=== PATIENT | female | born 1995 | race Caucasian/White ===

== ENCOUNTER → 2016-05-13 | Outpatient (CLI) | payer BC ==
[~2016-05-13] MED LIST: bcp PO
--- NOTE | 2016-05-13 15:13 | Diagnostic Imaging Report ---
INDICATION: Left-sided pelvic pain. COMPARISON: 12/18/2011. DISCUSSION: Transabdominal and transvaginal sonographic evaluation of the pelvis was performed. The uterus is normal in echotexture and size measuring 5.7 x 4.7 x 3.0 cm. Normal endometrial thickness measuring 0.2 cm. The left ovary was mostly obscured due to overlying bowel. The right ovary appears normal in echotexture and size with normal color Doppler blood flow. The right ovary measures 2.4 x 2.0 x 2.3 cm. No abnormal adnexal mass or fluid. IMPRESSION: 1. Nonvisualization of the left ovary. No acute abnormality otherwise identified. Dictated by: Dictated on workstation # [id number]
== END ==
LOC: RAD 14:10
PROVIDERS: ATTEND Nurse Practitioner
DX: R10.2 Pelvic and perineal pain (principal)
CPT/HCPCS: 76830; 76856

== ENCOUNTER → 2018-10-05 | Outpatient (CLI) | payer BC ==
--- NOTE | 2018-10-05 13:54 | Diagnostic Imaging Report ---
INDICATION: Pain. 3 views of the left foot were obtained. FINDINGS: The alignment is normal. There is no fracture or dislocation. Soft tissues are unremarkable. IMPRESSION: No acute fracture or dislocation. Dictated by: Dictated on workstation # [id number]
== END ==
LOC: RAD 13:22
PROVIDERS: ATTEND Nurse Practitioner Family
DX: M79.672 Pain in left foot (principal)
CPT/HCPCS: 73630

== ENCOUNTER 2019-01-25 11:26 | Emergency (ER) | payer BC ==
[~2019-01-25] VITALS: Ht 170 cm; Wt 52.7 kg
[2019-01-25 11:57] LABS: BILIRUBIN,URINE NEGATIVE (NEGATIVE); CLARITY,URINE CLEAR; COLOR,URINE YELLOW; GLUCOSE, URINE (UA) NEGATIVE (NEGATIVE); KETONES,URINE 3+ (NEGATIVE); LEUKOCYTE ESTERASE ,URINE 1+ (NEGATIVE); NITRITE,URINE NEGATIVE (NEGATIVE); PH,URINE 6 (5-9); PROTEIN,URINE 2+ (NEGATIVE)
[2019-01-25 12:05] LABS: BACTERIA,URINE FEW /HPF; RBC,URINE RARE /HPF; WBC,URINE RARE /HPF
[2019-01-25] MEDS ORDERED: NS IV 1000 ML 1,000 ML IV SCH (12:07)
--- NOTE | 2019-01-25 12:09 | ED GI ---
General Stated Complaint: ABD PAIN;VOMITING Source of Information: Patient NPO Since: Midnight last night (KIM MACKENZIE) History of Present Illness Date Seen by Provider: Jan 25, 2019 Time Seen by Provider: 12:00 Initial Comments Patient presents to the ED today with a three hour history of N/V/D. Patient states she has had five bouts of diarrhea and has vomited seven times. She has already been seen by [facility] and was referred to the ED. She hasn't eaten since midnight and hasn't been able to tolerate liquids. The patient is afebrile and denies any hematochezia or history of GI problems. LMP was two weeks ago. Timing/Duration: 4-6 Hours Severity/Quality: Moderate, Cramping Location: RLQ, Epigastric Radiation: No Radiation Activities at Onset: Sleeping Modifying Factors: Improves With Lying down, Improves With Vomiting Associated Symptoms: Denies Symptoms (KIM MACKENZIE) Initial Comments Patient seen and evaluated with the ELISABETH Student, agreed with history and assessment. Documentation edited, as needed. (ALONDRA VALLES) Allergies and Home Medications Allergies Coded Allergies: Sulfa (Sulfonamide Antibiotics) (Verified Allergy, Unknown, 01/25/19) Penicillins (Unverified Adverse Reaction, Mild, 12/05/11) Home Medications Ondansetron 4 Mg Tab.rapdis, 4-8 MG PO Q6H PRN for NAUSEA/VOMITING Prescribed by: ALONDRA VALLES on 01/25/19 1252 [bcp] , 1 TAB PO DAILY, (Reported) Patient Home Medication List Home Medication List Reviewed: Yes (ALONDRA VALLES) Review of Systems Review of Systems Constitutional: no symptoms reported EENTM: No Symptoms Reported Respiratory: No Symptoms Reported Cardiovascular: No Symptoms Reported Gastrointestinal: See HPI Genitourinary: No Symptoms Reported Musculoskeletal: no symptoms reported Skin: no symptoms reported Psychiatric/Neurological: No Symptoms Reported Endocrine: No Symptoms Reported Hematologic/Lymphatic: No Symptoms Reported (KIM MACKENZIE) Physical Exam Vital Signs Vital Signs - First Documented 01/25/19 11:45 Temp 36.3 Pulse 86 Resp 16 B/P (MAP) 125/101 (109) Pulse Ox 100 (ALONDRA VALLES) Vital Signs Capillary Refill : (MACKENZIE,KIM PA STUDENT) Height/Weight/BMI Height: '" Weight: lbs. oz. kg; BMI Method:Stated General Appearance: mild distress HEENT: PERRL/EOMI, normal ENT inspection, TMs normal, pharynx normal Neck: non-tender, full range of motion, supple, normal inspection Respiratory: chest non-tender, lungs clear, normal breath sounds, no respiratory distress, no accessory muscle use Cardiovascular: normal peripheral pulses, regular rate, rhythm, no edema, no gallop, no JVD, no murmur Peripheral Pulses: 2+ Dorsalis Pedis (R), 2+ Left Dors-Pedis (L), 2+ Radial Pulses (R), 2+ Radial Pulses (L) Gastrointestinal: normal bowel sounds, non tender, soft, no organomegaly, no pulsatile mass Extremities: normal range of motion, non-tender, normal inspection, no pedal edema, no calf tenderness Neurologic/Psychiatric: alert, normal mood/affect, oriented x 3 Skin: normal color, warm/dry Lymphatic: no adenopathy (KIM MACKENZIE PA STUDENT) Progress/Results/Core Measures Results/Orders Lab Results Laboratory Tests Test 01/25/19 11:50 01/25/19 12:20 Range/Units Urine Color YELLOW Urine Clarity CLEAR Urine pH 6 5-9 Urine Specific [place] 1.020 1.016-1.022 Urine Protein 2+ H NEGATIVE Urine Glucose (UA) NEGATIVE NEGATIVE Urine Ketones 3+ H NEGATIVE Urine Nitrite NEGATIVE NEGATIVE Urine Bilirubin NEGATIVE NEGATIVE Urine Urobilinogen 1 NORMAL MG/DL Urine Leukocyte Esterase 1+ H NEGATIVE Urine RBC (Auto) 1+ H NEGATIVE Urine RBC RARE /HPF Urine WBC RARE /HPF Urine Squamous Epithelial Cells NONE /HPF Urine Crystals NONE /LPF Urine Bacteria FEW H /HPF Urine Casts NONE /LPF Urine Mucus NEGATIVE /LPF Urine Culture Indicated NO White Blood Count 16.1 H 4.3-11.0 10^3/uL Red Blood Count 4.96 4.35-5.85 10^6/uL Hemoglobin 14.1 11.5-16.0 G/DL Hematocrit 41 35-52 % Mean Corpuscular Volume 83 80-99 FL Mean Corpuscular Hemoglobin 28 25-34 PG Mean Corpuscular Hemoglobin Concent 35 32-36 G/DL Red Cell Distribution Width 12.9 10.0-14.5 % Platelet Count 311 130-400 10^3/uL Mean Platelet Volume 9.7 7.4-10.4 FL Neutrophils (%) (Auto) 90 H 42-75 % Lymphocytes (%) (Auto) 6 L 12-44 % Monocytes (%) (Auto) 3 0-12 % Eosinophils (%) (Auto) 0 0-10 % Basophils (%) (Auto) 0 0-10 % Neutrophils # (Auto) 14.5 H 1.8-7.8 X 10^3 Lymphocytes # (Auto) 0.9 L 1.0-4.0 X 10^3 Monocytes # (Auto) 0.6 0.0-1.0 X 10^3 Eosinophils # (Auto) 0.1 0.0-0.3 10^3/uL Basophils # (Auto) 0.0 0.0-0.1 10^3/uL Neutrophils % (Manual) 92 % Lymphocytes % (Manual) 3 % Monocytes % (Manual) 5 % Eosinophils % (Manual) 0 % Basophils % (Manual) 0 % Band Neutrophils 0 % Blood Morphology Comment NORMAL Sodium Level 136 135-145 MMOL/L Potassium Level 3.3 L 3.6-5.0 MMOL/L Chloride Level 104 98-107 MMOL/L Carbon Dioxide Level 24 21-32 MMOL/L Anion Gap 8 5-14 MMOL/L Blood Urea Nitrogen 11 7-18 MG/DL Creatinine 0.80 0.60-1.30 MG/DL Estimat Glomerular Filtration Rate > 60 BUN/Creatinine Ratio 14 Glucose Level 117 H 70-105 MG/DL Calcium Level 8.8 8.5-10.1 MG/DL Corrected Calcium 8.5-10.1 MG/DL Total Bilirubin 0.7 0.1-1.0 MG/DL Aspartate Amino Transf (AST/SGOT) 16 5-34 U/L Alanine Aminotransferase (ALT/SGPT) 15 0-55 U/L Alkaline Phosphatase 62 40-136 U/L Total Protein 7.6 6.4-8.2 GM/DL Albumin 4.7 H 3.2-4.5 GM/DL (ALONDRA VALLES) My Orders Orders - ALONDRA VALLES Urine Bedside (01/25/19 11:28) Ua Culture If Indicated (01/25/19 11:28) Ondansetron Injection (Zofran Injectio (01/25/19 12:15) Ed Iv/Invasive Line Start (01/25/19 12:07) Ns Iv 1000 Ml (Sodium Chloride 0.9%) (01/25/19 12:07) Cbc With Automated Diff (01/25/19 12:08) Comprehensive Metabolic Panel (01/25/19 12:08) Manual Differential (01/25/19 12:20) (ALONDRA VALLES) Medications Given in ED Current Medications Medications Dose Ordered Sig/Sirisha Route Start Time Stop Time Status Last Admin Dose Admin Ondansetron HCl 4 mg ONCE ONCE IVP 01/25/19 12:15 01/25/19 12:16 DC 01/25/19 12:17 4 MG (ALONDRA VALLES) Vital Signs/I&O 01/25/19 01/25/19 11:45 13:42 Temp 36.3 Pulse 86 87 Resp 16 20 B/P (MAP) 125/101 (109) 134/94 Pulse Ox 100 99 (ALONDRA VALLES) Progress Progress Note : Time: 12:00 Progress Note Patient seen and evaluated, will give normal saline 1 L per IV and Zofran 8 mg 1240 patient reports symptoms are improving, will give ice chips and see how she tolerates. 1315 patient had no further nausea, vomiting, or diarrhea. Tolerating ice chips. IV infusing, will plan discharge after completion. 1330 patient reports be feeling much better. Discharge instructions and return precautions reviewed with her. (ALONDRA VALLES) Departure Impression Primary Impression: Viral gastroenteritis Disposition: 01 HOME, SELF-CARE Condition: Improved Departure-Patient Inst. Decision time for Depature: 13:30 (ALONDRA VALLES) Referrals: MOHAMUD HANSEN MD (PCP/Family) Primary Care Physician Patient Instructions: Viral Gastroenteritis, Adult (DC) Add. Discharge Instructions: Push clear liquid diet for the next 4-6 hours, then bland diet as tolerated. You may take Zofran 1-2 tablets every 6 hours as needed for nausea and vomiting. May take an gyae-nqk-prfqdof antidiarrheal as needed. Follow-up with your primary care provider in one to 2 days if symptoms are not improving or worsen. You may take Tylenol 650 mg every 6 hours as needed for fever or pain. Return to the emergency department for new, urgent health care needs. Scripts Ondansetron (Ondansetron Odt) 4 Mg Tab.rapdis 4-8 MG PO Q6H PRN for NAUSEA/VOMITING, #8 TAB 0 Refills Prov: ALONDRA VALLES 01/25/19 KIM MACKENZIE STUDENT Jan 25, 2019 12:09 ALONDRA VALLES Jan 25, 2019 12:53
[2019-01-25] MEDS ORDERED: ONDANSETRON 4 MG/2 ML (SDV) Z0FRAN IVP ONE (12:15)
[2019-01-25 12:28] LABS: BASOPHILS % (AUTO) 0 % (0-10); EOSINOPHILS # (AUTO) 0.1 10^3/uL (0.0-0.3); EOSINOPHILS % (AUTO) 0 % (0-10); HEMATOCRIT 41 % (35-52); HEMOGLOBIN 14.1 G/DL (11.5-16.0); LYMPHOCYTES # (AUTO) 0.9 X 10^3 (1.0-4.0); LYMPHOCYTES % (AUTO) 6 % (12-44); MEAN CORPUSCULAR HEMOGLOBIN 28 PG (25-34); MEAN CORPUSCULAR HGB CONC 35 G/DL (32-36); MEAN CORPUSCULAR VOLUME 83 FL (80-99); MEAN PLATELET VOLUME 9.7 FL (7.4-10.4); MONOCYTES # (AUTO) 0.6 X 10^3 (0.0-1.0); MONOCYTES % (AUTO) 3 % (0-12); NEUTROPHILS # (AUTO) 14.5 X 10^3 (1.8-7.8); NEUTROPHILS % (AUTO) 90 % (42-75); PLATELET COUNT 311 10^3/uL (130-400); RED CELL DISTRIBUTION WIDTH 12.9 % (10.0-14.5); WHITE BLOOD COUNT 16.1 10^3/uL (4.3-11.0)
[2019-01-25 12:49] LABS: CARBON DIOXIDE 24 MMOL/L (21-32); CHLORIDE 104 MMOL/L (98-107); POTASSIUM 3.3 MMOL/L (3.6-5.0); SODIUM 136 MMOL/L (135-145)
[2019-01-25 12:50] LABS: ALANINE AMINOTRANSFERASE 15 U/L (0-55); ALBUMIN 4.7 GM/DL (3.2-4.5); ALKALINE PHOSPHATASE 62 U/L (40-136); BILIRUBIN,TOTAL 0.7 MG/DL (0.1-1.0); BUN/CREATININE RATIO 14; CALCIUM 8.8 MG/DL (8.5-10.1); GFR ESTIMATED > 60; GLUCOSE 117 MG/DL (70-105); TOTAL PROTEIN 7.6 GM/DL (6.4-8.2)
[2019-01-25] MEDS ORDERED: ONDA4TAB11 PO (12:52)
[2019-01-25 12:56] LABS: BAND NEUTROPHILS 0 %; BASOPHILS % (MANUAL) 0 %; EOSINOPHILS % (MANUAL) 0 %; LYMPHOCYTES % (MANUAL) 3 %; MONOCYTES % (MANUAL) 5 %; NEUTROPHILS % (MANUAL) 92 %; RBC MORPH NORMAL
[2019-01-25 13:42] VITALS: BP 134/94
== END 2019-01-25 13:42 | disposition home or self-care (01) ==
LOC: EDUNIT# 11:26 → ER 11:27
DX: A08.4 Viral intestinal infection, unspecified (principal); Z88.2 Allergy status to sulfonamides; Z88.0 Allergy status to penicillin
CPT/HCPCS: 36415; 80053; 81000; 85007; 85027

== ENCOUNTER 2022-01-08 09:38 | Inpatient (IN) | payer BC, MEDICAID ==
[~2022-01-08] VITALS: Ht 170.2 cm; Wt 71.6 kg
[2022-01-08] VITALS (42 sets, daily range): BP systolic 120–170; BP diastolic 60–94
[~2022-01-08 09:38] MED LIST changes: +ONDA4TAB11 PO
[2022-01-08 10:13] LABS: BILIRUBIN,URINE NEGATIVE (NEGATIVE); CLARITY,URINE CLEAR; COLOR,URINE YELLOW; GLUCOSE, URINE (UA) NEGATIVE (NEGATIVE); KETONES,URINE NEGATIVE (NEGATIVE); LEUKOCYTE ESTERASE ,URINE NEGATIVE (NEGATIVE); NITRITE,URINE NEGATIVE (NEGATIVE); PH,URINE 6.5 (5-9); PROTEIN,URINE NEGATIVE (NEGATIVE)
[2022-01-08 10:23] LABS: BACTERIA,URINE NEGATIVE /HPF
[2022-01-08 10:24] LABS: SQUAMOUS EPITHELIAL CELL,UR RARE /HPF
[2022-01-08] MEDS ORDERED: MINERAL OIL 30 ML UDC TOP PRN (12:15)
[2022-01-08] MEDS ORDERED: LIDOCAINE/EPI 2% 1:200,00 (XYLOCAINE) 10 ML VIAL INJ PRN (12:15)
[2022-01-08 12:36] LABS: BASOPHILS % (AUTO) 0 % (0-10); EOSINOPHILS % (AUTO) 0 % (0-10); HEMATOCRIT 39 % (35-52); HEMOGLOBIN 13.2 g/dL (11.5-16.0); LYMPHOCYTES # (AUTO) 1.5 10^3/uL (1.0-4.0); LYMPHOCYTES % (AUTO) 12 % (12-44); MEAN CORPUSCULAR HEMOGLOBIN 28 pg (25-34); MEAN CORPUSCULAR HGB CONC 34 g/dL (32-36); MEAN CORPUSCULAR VOLUME 83 fL (80-99); MEAN PLATELET VOLUME 10.7 fL (9.0-12.2); MONOCYTES # (AUTO) 0.7 10^3/uL (0.0-1.0); MONOCYTES % (AUTO) 6 % (0-12); NEUTROPHILS # (AUTO) 10.3 10^3/uL (1.8-7.8); NEUTROPHILS % (AUTO) 81 % (42-75); PLATELET COUNT 284 10^3/uL (130-400); WHITE BLOOD COUNT 12.7 10^3/uL (4.3-11.0)
[2022-01-08] MEDS: D5 LR IV SOLUTION 1,000 ML IV SCH ×2 (13:17→19:29)
[2022-01-08] MEDS ORDERED: MV-M1TAB66 PO (13:20)
[2022-01-08] MEDS ORDERED: CATHETER FLUSH 10 ML SYR IV SCH (14:00)
[2022-01-08] MEDS ORDERED: LACTATED RINGERS 1,000 ML IV ONE (16:48)
[2022-01-08] MEDS ORDERED: fentaNYL 2 mcg/ml BUPIVA 0.125 100 ML ONE (16:48)
[2022-01-08] MEDS ORDERED: diphenhydrAMINE 50 MG/ML INJ (BENADRYL) IV PRN (18:00)
[2022-01-08] MEDS ORDERED: ONDANSETRON 4 MG/2 ML (SDV) Z0FRAN IV PRN (18:00)
[2022-01-08] MEDS ORDERED: NALOXONE 0.4 MG/ML 1 ML (NARCAN) VIAL IV PRN ×2 (18:00)
[2022-01-08] MEDS ORDERED: LACTATED RINGERS 1,000 ML IV SCH (18:00)
[2022-01-08] MEDS ORDERED: METOCLOPRAMIDE INJ 10 MG/2 ML (REGLAN) IV PRN (18:00)
[2022-01-08] MEDS ORDERED: fentaNYL 2 mcg/ml BUPIVA 0.125 100 ML EPI SCH (18:00)
--- NOTE | 2022-01-08 18:38 | History & Physical-OB ---
OB - Chief Complaint & HPI Date/Time Date of Admission: Date of Admission: Jan 08, 2022 at 12:08 Date seen by a Provider: Jan 08, 2022 Time Seen by a Provider: 18:25 Chief Complaint/History OB-Reason for Admission/Chief: Onset of Labor Hx : 1 Hx Para: 0 Expected Date of Delivery: Jan 13, 2022 Gestational Age in Weeks: 39 Gestational Age in Days: 2 History of Labs O+, Ab neg, Rub Imm HIV/RPR/HepB/C NR Normal 1 hr GTT GBS neg Allergies and Home Medications Allergies Coded Allergies: Sulfa (Sulfonamide Antibiotics) (Verified Allergy, Unknown, 01/25/19) Penicillins (Unverified Adverse Reaction, Mild, 12/05/11) Patient Home Medication List Home Medication List Reviewed: Yes Mv-Mn/Iron/FA/Herbal/Digestive ( One Tablet) 27 Mg Iron-360 Mcg-125 Mg- 32 Mg Tablet, 1 EACH PO DAILY, (Reported) Entered as Reported by: NELIA FLYNN on 01/08/22 1320 Last Action: New Order Discontinued Medications Ondansetron (Ondansetron Odt) 4 Mg Tab.rapdis, 4-8 MG PO Q6H PRN for NAUSEA/VOMITING Discontinued Reason: No Longer Taking Prescribed by: ALONDRA VALLES on 01/25/19 1252 Last Action: Discontinued [bcp] , 1 TAB PO DAILY, (Reported) Discontinued Reason: No Longer Taking Entered as Reported by: ALONDRA ELIZONDO on 12/05/112008 Last Action: Discontinued OB - History Hx of Present Care: Yes Ultrasounds: Normal mid trimester US Obstetrical Complications: None Medical Complications: None Obstetrical History Hx : 1 Patient Past Medical History None Social History/Family History Alcohol Use: Denies Use Smoking Cessation: Never smoker Immunizations Influenza Vaccine Up-to-Date: No; Not Current Tetanus Booster (TDap): Less than 5yrs (11/03/21) Rubella: immune RPR/VDRL: Negative GBS Status: Negative HBsAG: Negative OB - Admission Exam Physical Exam HEENT: NCAT Lungs: Clear Abdomen: Gravid Cervical Dilatation: 6cm Effacement: 100% Station: -1 Membranes: Intact Heart Rate: 140's Decelerations: No Decelerations Short Term Variability: Present Contractions on Admission: < 5 Minutes Apart Intensity: Firm Labs Laboratory Tests Test 01/08/22 10:00 01/08/22 12:25 Range/Units Urine Color YELLOW Urine Clarity CLEAR Urine pH 6.5 5-9 Urine Specific [place] 1.010 L 1.016-1.022 Urine Protein NEGATIVE NEGATIVE Urine Glucose (UA) NEGATIVE NEGATIVE Urine Ketones NEGATIVE NEGATIVE Urine Nitrite NEGATIVE NEGATIVE Urine Bilirubin NEGATIVE NEGATIVE Urine Urobilinogen 0.2 < = 1.0 MG/DL Urine Leukocyte Esterase NEGATIVE NEGATIVE Urine RBC (Auto) NEGATIVE NEGATIVE Urine RBC NONE /HPF Urine WBC NONE /HPF Urine Squamous Epithelial Cells RARE /HPF Urine Crystals NONE /LPF Urine Bacteria NEGATIVE /HPF Urine Casts NONE /LPF Urine Mucus NEGATIVE /LPF Urine Culture Indicated NO White Blood Count 12.7 H 4.3-11.0 10^3/uL Red Blood Count 4.70 3.80-5.11 10^6/uL Hemoglobin 13.2 11.5-16.0 g/dL Hematocrit 39 35-52 % Mean Corpuscular Volume 83 80-99 fL Mean Corpuscular Hemoglobin 28 25-34 pg Mean Corpuscular Hemoglobin Concent 34 32-36 g/dL Red Cell Distribution Width 13.6 10.0-14.5 % Platelet Count 284 130-400 10^3/uL Mean Platelet Volume 10.7 9.0-12.2 fL Immature Granulocyte % (Auto) 1 % Neutrophils (%) (Auto) 81 H 42-75 % Lymphocytes (%) (Auto) 12 12-44 % Monocytes (%) (Auto) 6 0-12 % Eosinophils (%) (Auto) 0 0-10 % Basophils (%) (Auto) 0 0-10 % Neutrophils # (Auto) 10.3 H 1.8-7.8 10^3/uL Lymphocytes # (Auto) 1.5 1.0-4.0 10^3/uL Monocytes # (Auto) 0.7 0.0-1.0 10^3/uL Eosinophils # (Auto) 0.0 0.0-0.3 10^3/uL Basophils # (Auto) 0.0 0.0-0.1 10^3/uL Immature Granulocyte # (Auto) 0.1 0.0-0.1 10^3/uL OB - Assessment/Plan/Diagnosis Assessment Assessment: active labor Admission Dx Third Trimester 39 week gestation Admission Status: Inpatient Order (span 2 midnights) Reason for Inpatient Admission: Labor and post care Plan Other Plan 26 yo G1 @ 39.2 wga here for bleeding and possible rupture of membranes Plan - Expectant management - GBS neg - AROM 1829, Thin Mec ESTEBAN LAU MD Jan 08, 2022 18:38
[2022-01-08] MEDS ORDERED: OXYTOCIN PRE-MIX DRIP 500 ML IV ONE ×2 (22:08→23:32)
[2022-01-08] MEDS: OXYTOCIN PRE-MIX DRIP 500 ML IV SCH ×2 (22:55→23:32)
--- NOTE | 2022-01-08 23:42 | OB Labor & Delivery Record ---
Vag Delivery Note Vag Delivery Note Date of Delivery: 01/08/22 Preoperative Diagnosis: Mya Frazier is a (26 /Para 1 / 0, Gestational Age (wks)39.3 here in active labor with SROM at home Postoperative Diagnosis: Same Surgeon: ESTEBAN LAU MD Design Agent: None Anesthesia: Epidural Delivery Type: @ 2220 Findings: Viable female , apgars 9/9, weight 7#6, 3355 grams Lacerations: 2nd degree perineal and right labial laceration Intact placenta with 3 vessel cord. No nuchal cord, body cord or shoulder dystocia Estimated Blood Loss: 125 ml Complications: None Condition: Stable Description of Procedure: The patient is a 26 year old female who presented in active labor. She was admitted and informed consent was obtained. Her labor course was unremarkable. She progressed to complete dilatation and began to push. She was then set up for delivery. The 's head was delivered atraumatically in the HAMIDA position. The shoulders and remainder of the 's body were then delivered without difficulty. Upon delivery, the head was held below the level of the perineum and the mouth and nares were bulb suctioned. The cord was doubly clamped and cut after 3 min delay and the was attended to by the pediatric staff on maternal abdomen. An intact placenta with 3-vessel cord delivered via Ty and there was found to be minimal bleeding.~ Vigorous fundal massage was performed and the fundus was found to be firm. IV oxytocin was given. Examination of the vagina and perineum revealed a 2nd degree perineal laceration and right labial laceration repaired in the usual fashion with 3-0 vicryl suture. Following the repair, sponge, instrument and needle counts were correct. Mom and baby were both in stable condition in the labor suite. Vitals - Labs Vital Signs - I&O Vital Signs Date Time Temp Pulse Resp B/P (MAP) Pulse Ox O2 Delivery O2 Flow Rate FiO2 01/08/22 21:15 85 16 127/91 (103) 100 Room Air 01/08/22 21:10 70 127/91 (103) 99 Room Air 01/08/22 21:05 84 137/87 (104) 99 Room Air 01/08/22 21:00 74 16 136/88 (104) 99 Room Air 01/08/22 20:55 83 130/91 (104) 99 Room Air 01/08/22 20:50 76 131/87 (102) 99 Room Air 01/08/22 20:45 80 16 150/85 (106) 99 Room Air 01/08/22 20:30 37.2 81 16 133/87 (102) 99 Room Air 01/08/22 20:15 101 16 153/88 (109) 100 Room Air 01/08/22 20:00 80 16 148/86 (106) 100 Room Air 01/08/22 19:45 77 16 100 Room Air 01/08/22 19:00 72 18 129/74 (92) 100 Room Air 01/08/22 18:50 77 18 137/74 (95) 100 Room Air 01/08/22 18:40 82 18 130/75 (93) 100 Room Air 01/08/22 18:30 110 18 132/88 (103) 99 Room Air 01/08/22 18:20 68 18 120/69 (86) 99 Room Air 01/08/22 18:14 93 18 127/60 (82) 98 Room Air 01/08/22 18:04 78 18 125/61 (82) 98 Room Air 01/08/22 18:00 92 18 140/85 (103) 99 Room Air 01/08/22 17:50 95 18 130/89 (103) 99 Room Air 01/08/22 17:46 90 18 143/93 (110) Room Air 01/08/22 17:43 37.0 81 18 139/90 (106) 100 Room Air 01/08/22 17:40 88 18 142/77 (98) 100 Room Air 01/08/22 17:37 85 18 158/92 (114) Room Air 01/08/22 17:34 88 18 152/88 (109) 100 Room Air 01/08/22 17:31 84 18 151/83 (105) Room Air 01/08/22 17:28 83 18 152/83 (106) 100 Room Air 01/08/22 16:16 37.0 90 18 134/83 (100) Room Air 01/08/22 15:37 36.8 80 18 138/90 (106) 99 Room Air 01/08/22 13:50 73 18 143/88 (106) Room Air 01/08/22 13:15 36.6 74 18 146/92 (110) Room Air 01/08/22 11:20 77 152/92 (112) Labs Laboratory Tests 01/08/22 10:00: Urine Color YELLOW, Urine Clarity CLEAR, Urine pH 6.5, Urine Specific [place] 1.010L, Urine Protein NEGATIVE, Urine Glucose (UA) NEGATIVE, Urine Ketones NEGATIVE, Urine Nitrite NEGATIVE, Urine Bilirubin NEGATIVE, Urine Urobilinogen 0.2, Urine Leukocyte Esterase NEGATIVE, Urine RBC (Auto) NEGATIVE, Urine RBC NONE, Urine WBC NONE, Urine Squamous Epithelial Cells RARE, Urine Crystals NONE, Urine Bacteria NEGATIVE, Urine Casts NONE, Urine Mucus NEGATIVE, Urine Culture Indicated NO 01/08/22 12:25: White Blood Count 12.7H, Red Blood Count 4.70, Hemoglobin 13.2, Hematocrit 39, Mean Corpuscular Volume 83, Mean Corpuscular Hemoglobin 28, Mean Corpuscular Hemoglobin Concent 34, Red Cell Distribution Width 13.6, Platelet Count 284, Mean Platelet Volume 10.7, Immature Granulocyte % (Auto) 1, Neutrophils (%) (Auto) 81H, Lymphocytes (%) (Auto) 12, Monocytes (%) (Auto) 6, Eosinophils (%) (Auto) 0, Basophils (%) (Auto) 0, Neutrophils # (Auto) 10.3H, Lymphocytes # (Auto) 1.5, Monocytes # (Auto) 0.7, Eosinophils # (Auto) 0.0, Basophils # (Auto) 0.0, Immature Granulocyte # (Auto) 0.1 ESTEBAN LAU MD Jan 08, 2022 23:42
[2022-01-08] MEDS ORDERED: WITCH HAZEL(TUCKS) 40 EA JAR TOP PRN (23:45)
[2022-01-08] MEDS ORDERED: BENZOCAINE/MENTHOL (DERMOPLAST) 56 ML CAN TP PRN (23:45)
[2022-01-09] VITALS (14 sets, daily range): BP systolic 122–147; BP diastolic 71–87
[2022-01-09] MEDS: IBUPROFEN 600 MG (MOTRIN) TAB PO SCH ×4 (00:55→20:23)
[2022-01-09] MEDS: ACETAMINOPHEN 500 MG TAB (TYLENOL) PO SCH ×3 (05:00→20:23)
[2022-01-09] MEDS ORDERED: CATHETER FLUSH 10 ML SYR IV SCH (06:00)
[2022-01-09 06:03] LABS: BASOPHILS # (AUTO) 0.1 10^3/uL (0.0-0.1); BASOPHILS % (AUTO) 0 % (0-10); EOSINOPHILS % (AUTO) 0 % (0-10); HEMATOCRIT 32 % (35-52); HEMOGLOBIN 10.8 g/dL (11.5-16.0); LYMPHOCYTES # (AUTO) 1.5 10^3/uL (1.0-4.0); LYMPHOCYTES % (AUTO) 9 % (12-44); MEAN CORPUSCULAR HEMOGLOBIN 28 pg (25-34); MEAN CORPUSCULAR HGB CONC 34 g/dL (32-36); MEAN CORPUSCULAR VOLUME 83 fL (80-99); MEAN PLATELET VOLUME 10.9 fL (9.0-12.2); MONOCYTES # (AUTO) 1.2 10^3/uL (0.0-1.0); MONOCYTES % (AUTO) 8 % (0-12); NEUTROPHILS # (AUTO) 13.2 10^3/uL (1.8-7.8); NEUTROPHILS % (AUTO) 82 % (42-75); PLATELET COUNT 237 10^3/uL (130-400); WHITE BLOOD COUNT 16.2 10^3/uL (4.3-11.0)
[2022-01-09 06:33] LABS: LYMPHOCYTES % (MANUAL) 8 %; MICROCYTOSIS SLIGHT; MONOCYTES % (MANUAL) 8 %; NEUTROPHILS % (MANUAL) 84 %
--- NOTE | 2022-01-09 07:56 | Progress Note ---
Subjective Subjective/Events-last exam patient appears comfortable this morning. She does not voice any complaints. Her vaginal bleeding has been minimal. Objective Exam Last Set of Vital Signs Vital Signs Date Time Temp Pulse Resp B/P (MAP) Pulse Ox O2 Delivery O2 Flow Rate FiO2 01/09/22 04:58 37.3 77 18 124/85 (98) 98 Room Air Capillary Refill : I&O Intake and Output 01/09/22 00:00 Intake Total 500 ml Balance 500 ml Intake IV Total 500 ml Daily Weight Change No General: No Acute Distress Lungs: Clear to Auscultation Heart: Regular Rate Results/Procedures Lab Laboratory Tests 01/08/22 10:00: Urine Color YELLOW, Urine Clarity CLEAR, Urine pH 6.5, Urine Specific [place] 1.010L, Urine Protein NEGATIVE, Urine Glucose (UA) NEGATIVE, Urine Ketones NEGATIVE, Urine Nitrite NEGATIVE, Urine Bilirubin NEGATIVE, Urine Urobilinogen 0.2, Urine Leukocyte Esterase NEGATIVE, Urine RBC (Auto) NEGATIVE, Urine RBC NONE, Urine WBC NONE, Urine Squamous Epithelial Cells RARE, Urine Crystals NONE, Urine Bacteria NEGATIVE, Urine Casts NONE, Urine Mucus NEGATIVE, Urine Culture Indicated NO 01/08/22 12:25: White Blood Count 12.7H, Red Blood Count 4.70, Hemoglobin 13.2, Hematocrit 39, Mean Corpuscular Volume 83, Mean Corpuscular Hemoglobin 28, Mean Corpuscular Hemoglobin Concent 34, Red Cell Distribution Width 13.6, Platelet Count 284, Mean Platelet Volume 10.7, Immature Granulocyte % (Auto) 1, Neutrophils (%) (Auto) 81H, Lymphocytes (%) (Auto) 12, Monocytes (%) (Auto) 6, Eosinophils (%) (Auto) 0, Basophils (%) (Auto) 0, Neutrophils # (Auto) 10.3H, Lymphocytes # (Auto) 1.5, Monocytes # (Auto) 0.7, Eosinophils # (Auto) 0.0, Basophils # (Auto) 0.0, Immature Granulocyte # (Auto) 0.1 01/09/22 05:51: White Blood Count 16.2H, Red Blood Count 3.85, Hemoglobin 10.8L, Hematocrit 32L, Mean Corpuscular Volume 83, Mean Corpuscular Hemoglobin 28, Mean Corpuscular Hemoglobin Concent 34, Red Cell Distribution Width 13.8, Platelet Count 237, Mean Platelet Volume 10.9, Immature Granulocyte % (Auto) 1, Neutrophils (%) (Auto) 82H, Lymphocytes (%) (Auto) 9L, Monocytes (%) (Auto) 8, Eosinophils (%) (Auto) 0, Basophils (%) (Auto) 0, Neutrophils # (Auto) 13.2H, Lymphocytes # (Auto) 1.5, Monocytes # (Auto) 1.2H, Eosinophils # (Auto) 0.0, Basophils # (Auto) 0.1, Immature Granulocyte # (Auto) 0.1, Neutrophils % (Manual) 84, Lym phocytes % (Manual) 8, Monocytes % (Manual) 8, Microcytosis SLIGHT Assessment/Plan Assessment/Plan Admission Dx 1. Intrauterine at 39 weeks gestation Admission Status: Inpatient Order (span 2 midnights) Reason for Inpatient Admission: labor and delivery--completed Assessment & Plan 1. Intrauterine at 39 weeks gestation -routine care orders -She will be discharged in the morning of January 10, 2022 due to her late delivery in the evening of January 08 MOHAMUD HANSEN MD Jan 09, 2022 07:56
[2022-01-09] MEDS: DOCUSATE SODIUM 100 MG (COLACE) CAP PO SCH ×2 (09:29→20:22)
[2022-01-09] MEDS: PRENATAL VITAMIN 1 EA TAB PO SCH (09:30)
--- NOTE | 2022-01-09 12:15 | Anesthesia-Regional Post-Op ---
Regional Patient Condition Mental Status: Alert, Oriented x3 Circulation: Same as Pre-Op Headache: Absent Sensation: Full Recovery Motor Block: Absent Post Op Complications Complications None Follow Up Care/Instructions Patient Instructions None needed. Anesthesia/Patient Condition Patient is doing well, no complaints, stable vital signs, no apparent adverse anesthesia problems. No complications reported per nursing. PAULA ROSARIO CRNA Jan 09, 2022 12:15
[2022-01-10 02:48] VITALS: BP 131/82
[2022-01-10] MEDS: IBUPROFEN 600 MG (MOTRIN) TAB PO SCH ×2 (02:51→09:32)
[2022-01-10] MEDS ORDERED: IBUP-844 PO (07:01)
--- NOTE | 2022-01-10 07:02 | Discharge Inst-Women's Service ---
Discharge Inst-Women's Serv Depart Medication/Instructions New, Converted or Re-Newed RX: Transmitted to Pharmacy ([facility]) Problems Reviewed?: Yes Consults/Follow Up Additional Follow Up: Yes (Dr Friedman in 6 weeks.) Activity Activity: Activity as Tolerated Driving Instructions: No Driving for 1 Week Nothing Inside Vagina: No [place] (for 6 weeks.) Diet Discharge Diet: Regular Diet Return to The Hospital For: as below Symptoms to Report to : Fever Over 101 Degrees F, Vaginal Bleeding Increase, Vaginal Discharge Foul For Any Problems or Questions: Contact Your Physician MOHAMUD HANSEN MD Jan 10, 2022 07:02
--- NOTE | 2022-01-10 07:03 | Discharge Summary ---
Diagnosis/Chief Complaint Date of Admission Jan 08, 2022 at 12:08 Date of Discharge Admission Diagnosis Admission Diagnosis 1. IUP at term 39 weeks Discharge Diagnosis 1. IUP at term 39 weeks Chief Complaint/HPI Chief Complaint/HPI 26-year-old 1 now term 1 L1 who initially presented to labor and delivery on January 08, 2022 in labor. She had care obtained through [facility] Her GBS status performed at 36 weeks was negative. Discharge Summary-OBS Procedures None. Discharge Physical Examination Allergies: Coded Allergies: Sulfa (Sulfonamide Antibiotics) (Verified Allergy, Unknown, 01/25/19) Penicillins (Unverified Adverse Reaction, Mild, 12/05/11) Vitals & I&Os Vital Sign - Last 12Hours Date Time Temp Pulse Resp B/P (MAP) Pulse Ox O2 Delivery O2 Flow Rate FiO2 01/10/22 02:48 36.1 70 20 131/82 (98) 98 Room Air General Appearance: Alert Respiratory: Clear to Auscultation Cardiovascular: Regular Rate Abdominal: Soft (with uterus firm) Hospital Course following admission she underwent labor course. She was noted to have thin meconium upon artificial rupture of membranes. She went on to eventually deliver vaginally. She delivered a term viable female during the evening of January 08, 2022. See labor and delivery summary for full details. Following delivery she underwent routine care orders. She had no remaining complications during the course of hospital stay. Her hemoglobin in the morning of January 09 was 10.8 compared to admission of 13.2. She had tolerated regular diet. She had no issues with chest pain or leg pain. Discharge was performed in the morning of January 10, 2022. All questions answered and she will follow up with Dr. Friedman in 6 weeks. Discharge Instructions to patient/family Please see electronic discharge instructions given to patient. Discharge Medications Reviewed and agree with Discharge Medication list on patient's Discharge Instruction sheet MOHAMUD HANSEN MD Jan 10, 2022 07:03
[2022-01-10] MEDS: PRENATAL VITAMIN 1 EA TAB PO SCH (08:01)
[2022-01-10] MEDS: ACETAMINOPHEN 500 MG TAB (TYLENOL) PO SCH ×2 (08:01)
[2022-01-10 08:14] VITALS: BP 133/82
[2022-01-10] MEDS: DOCUSATE SODIUM 100 MG (COLACE) CAP PO SCH (09:32)
[2022-01-10 10:38] VITALS: BP 133/82
== END 2022-01-10 10:39 | disposition home or self-care (01) | DRG 807 ==
LOC: WSo 09:38 → LDRP 09:38 → WSo 12:07 → LDRP 12:08
PROVIDERS: ADMIT Family Medicine; ATTEND Family Medicine
PROC: 10E0XZZ Delivery of Products of Conception, External Approach (ICD-10-PCS; principal; 2022-01-08)
PROC: 0KQM0ZZ Repair Perineum Muscle, Open Approach (ICD-10-PCS; 2022-01-08)
DX: O70.1 Second degree perineal laceration during delivery (principal); Z37.0 Single live birth; O77.0 Labor and delivery complicated by meconium in amniotic fluid; Z3A.39 39 weeks gestation of pregnancy; Z88.0 Allergy status to penicillin; Z88.2 Allergy status to sulfonamides
CPT/HCPCS: 36415; 81000; 85007; 85025; 85027; 86850; 86900; 86901; 99212